=== PATIENT | male | born 1985 | race Caucasian/White ===

== ENCOUNTER 2018-03-31 20:56 | Emergency (ER) | payer OTHER ==
[~2018-03-31] VITALS: Ht 198.1 cm; Wt 140.6 kg
[~2018-03-31 20:56] MED LIST: NOHOMEMEDS
[2018-03-31 21:06] VITALS: BP 146/92
== END 2018-03-31 23:08 | disposition home or self-care (01) ==
LOC: EME 20:56
PROC: 0JQJ0ZZ Repair Right Hand Subcutaneous Tissue and Fascia, Open Approach (ICD-10-PCS; principal; 2018-03-31)
PROC: 3E0234Z Introduction of Serum, Toxoid and Vaccine into Muscle, Percutaneous Approach (ICD-10-PCS; principal; 2018-03-31)
DX: S61.011A Laceration without foreign body of right thumb without damage to nail, initial encounter (principal); W26.8XXA Contact with other sharp object(s), not elsewhere classified, initial encounter; Y99.0 Civilian activity done for income or pay; Z23 Encounter for immunization; Z91.041 Radiographic dye allergy status
CPT/HCPCS: 99281; 99284

== ENCOUNTER 2018-04-03 22:02 | Emergency (ER) | payer OTHER ==
[~2018-04-03] VITALS: Ht 198.1 cm; Wt 134.9 kg
[2018-04-04 01:52] VITALS: BP 142/96
== END 2018-04-04 02:01 | disposition home or self-care (01) ==
LOC: EME 22:02
PROC: 0HQFXZZ Repair Right Hand Skin, External Approach (ICD-10-PCS; principal; 2018-04-03)
DX: S61.411A Laceration without foreign body of right hand, initial encounter (principal); W45.8XXA Other foreign body or object entering through skin, initial encounter
CPT/HCPCS: 99281; 99284